=== PATIENT | male | born 1935 | race Caucasian/White ===

== ENCOUNTER 2018-12-29 11:17 | Emergency (ER) | payer MEDICARE ==
[~2018-12-29] VITALS: Ht 170.2 cm; Wt 79.4 kg
[~2018-12-29 11:17] MED LIST: COLACE100 MG PO; DIFLUCAN150 MG PO; FIBERCON625 M1 PO; LIPITOR 10 MG10 M1 PO; LIPITOR10 MG PO; LISINOPRIL10 MG PO; LISINOPRIL20 MG PO; NEURONTIN 300M300 M2 PO; OXYCODONE HCL10 MG PO; OXYCODONE-APAP1 EAC4 PO; POLYETHYLENE GL17 GM PO; PRILOSEC20 MG PO; TIROSINT100 MCG PO; UNICOMPLEX M TA1 TA1 PO
[2018-12-29] MEDS ORDERED: METFORMIN HCL500 MG PO (11:40)
[2018-12-29] MEDS ORDERED: KEFLEX500 M1 PO ×2 (14:53→14:58)
[2018-12-29 15:31] VITALS: BP 150/86
== END 2018-12-29 15:31 | disposition home or self-care (01) ==
LOC: M.ERS 11:17
DX: S61.012A Laceration without foreign body of left thumb without damage to nail, initial encounter (principal); I10 Essential (primary) hypertension; M54.9 Dorsalgia, unspecified; G89.29 Other chronic pain; W45.8XXA Other foreign body or object entering through skin, initial encounter; Y93.89 Activity, other specified; Y92.89 Other specified places as the place of occurrence of the external cause; Y99.8 Other external cause status

== ENCOUNTER 2018-12-31 04:32 | Emergency (ER) | payer MEDICARE ==
[~2018-12-31] VITALS: Ht 170.2 cm; Wt 78.9 kg
[~2018-12-31 04:32] MED LIST changes: +KEFLEX500 M1 PO; +METFORMIN HCL500 MG PO
[2018-12-31] MEDS ORDERED: NORCO 7.5-3251 EACH PO (05:19)
[2018-12-31 05:29] VITALS: BP 177/68
== END 2018-12-31 05:29 | disposition home or self-care (01) ==
LOC: M.ERS 04:32
DX: L76.32 Postprocedural hematoma of skin and subcutaneous tissue following other procedure (principal); I10 Essential (primary) hypertension; G47.30 Sleep apnea, unspecified; M54.9 Dorsalgia, unspecified; G89.29 Other chronic pain; Z98.890 Other specified postprocedural states

== ENCOUNTER → 2019-02-01 | Outpatient (CLI) | payer MEDICARE ==
[~2019-02-01] MED LIST changes: +NORCO 7.5-3251 EACH PO
== END ==
LOC: M.LAB 09:17
DX: D69.6 Thrombocytopenia, unspecified (principal)

== ENCOUNTER → 2019-02-02 | Outpatient (CLI) | payer MEDICARE ==
[2019-02-02 08:03] VITALS: BP 147/72; BP 147/74; BP 153/65
[2019-02-02 10:14] VITALS: BP 146/76; BP 147/76; BP 148/76; BP 150/70
--- NOTE | 2019-02-02 12:33 | NUR ---
ARRIVED AMBULATORY. MADE SELF COMFORTABLE. TRANSFUSION PROCCESS AND RISK [place] REVIEWED. VOICED UNDERSTANDING AND CONSENT SIGNED. PREMEDICATED WITH TYLENOL 650MG PO AND BENADRYL 50MG PO AT 0805. TRANSFUSION OR 2 UNITS PLATELET COMPLETED AND TOLERATED WELL. POST PLATELET LAB OBTAINED PER ORDER. DENEIS QUESTIONS OR NEEDS AT DISCHARGE.
== END ==
LOC: M.LAB 05:03 → M.INFUS 07:30
DX: D69.6 Thrombocytopenia, unspecified (principal)

== ENCOUNTER → 2019-03-20 | Outpatient (CLI) | payer MEDICARE ==
[2019-03-20 10:12] VITALS: BP 161/84; BP 178/77
--- NOTE | 2019-03-20 11:17 | NUR ---
ARRIVED AMBULATORY. MADE SELF COMFORTABLE IN RECLINER. IV STARTED WITH OUT DIFFICULTY. PLATELET TRANSFUSION COMPLETED AND TOLERATED WELL. DENIES NEEDS OR QUESTION AT DISCHARGE.
== END ==
LOC: M.INFUS 04:57
DX: D69.3 Immune thrombocytopenic purpura (principal)

== ENCOUNTER → 2019-03-27 | Outpatient (CLI) | payer MEDICARE | LOC: M.ULTRA 07:49 | DX: D69.6 Thrombocytopenia, unspecified (principal); K80.20 Calculus of gallbladder without cholecystitis without obstruction; R16.1 Splenomegaly, not elsewhere classified ==

== ENCOUNTER → 2019-03-30 | Outpatient (CLI) | payer MEDICARE ==
[2019-03-30 09:54] VITALS: BP 132/67; BP 138/72
--- NOTE | 2019-03-30 11:03 | NUR ---
ARRIVED AMBULATORY. MARICEL ADVERSE REACTION TO PRIOR TRANSFUSION OF BLOOD PRODUCTS. IV STARTED WITH OUT DIFFICULTY. 1 UNIT PLATELET TRANSFUSION COMPLETED AND TOLERATED WELL. IV FLUSHED AND REMOVED. DISCHARGE INSTRUCTION REVIEWED. MARICEL QUESTIONS OR NEEDS AT DISCHARGE.
== END ==
LOC: M.INFUS 05:37
DX: D69.6 Thrombocytopenia, unspecified (principal)

== ENCOUNTER → 2019-05-08 | Outpatient (CLI) | payer MEDICARE | LOC: M.WC 05:12 | DX: E11.621 Type 2 diabetes mellitus with foot ulcer (principal); L97.522 Non-pressure chronic ulcer of other part of left foot with fat layer exposed; L97.511 Non-pressure chronic ulcer of other part of right foot limited to breakdown of skin; L84 Corns and callosities; E07.89 Other specified disorders of thyroid; E78.5 Hyperlipidemia, unspecified; G47.30 Sleep apnea, unspecified; G89.29 Other chronic pain; I10 Essential (primary) hypertension; Z85.46 Personal history of malignant neoplasm of prostate ==

== ENCOUNTER → 2019-05-17 | Outpatient (CLI) | payer MEDICARE | LOC: M.WC 00:27 | DX: E11.621 Type 2 diabetes mellitus with foot ulcer (principal); L97.521 Non-pressure chronic ulcer of other part of left foot limited to breakdown of skin; L97.511 Non-pressure chronic ulcer of other part of right foot limited to breakdown of skin; E07.89 Other specified disorders of thyroid; E78.5 Hyperlipidemia, unspecified; G47.30 Sleep apnea, unspecified; I10 Essential (primary) hypertension; Z85.46 Personal history of malignant neoplasm of prostate ==

== ENCOUNTER → 2019-05-24 | Outpatient (CLI) | payer MEDICARE | LOC: M.WC 05:03 | DX: E11.621 Type 2 diabetes mellitus with foot ulcer (principal); L97.521 Non-pressure chronic ulcer of other part of left foot limited to breakdown of skin; L97.511 Non-pressure chronic ulcer of other part of right foot limited to breakdown of skin; E07.89 Other specified disorders of thyroid; E78.5 Hyperlipidemia, unspecified; I10 Essential (primary) hypertension; G47.30 Sleep apnea, unspecified; Z85.46 Personal history of malignant neoplasm of prostate ==

== ENCOUNTER → 2019-05-29 | Outpatient (CLI) | payer MEDICARE | LOC: M.WC 05:24 | DX: E11.621 Type 2 diabetes mellitus with foot ulcer (principal); L97.521 Non-pressure chronic ulcer of other part of left foot limited to breakdown of skin; E07.89 Other specified disorders of thyroid; E78.5 Hyperlipidemia, unspecified; G47.30 Sleep apnea, unspecified; I10 Essential (primary) hypertension; M54.9 Dorsalgia, unspecified; Z85.46 Personal history of malignant neoplasm of prostate ==

== ENCOUNTER → 2019-06-07 | Outpatient (CLI) | payer MEDICARE | LOC: M.WC 05:17 | DX: E11.621 Type 2 diabetes mellitus with foot ulcer (principal); L97.521 Non-pressure chronic ulcer of other part of left foot limited to breakdown of skin; E07.89 Other specified disorders of thyroid; E78.5 Hyperlipidemia, unspecified; G47.30 Sleep apnea, unspecified; I10 Essential (primary) hypertension; Z85.46 Personal history of malignant neoplasm of prostate ==

== ENCOUNTER → 2019-06-14 | Outpatient (CLI) | payer MEDICARE | LOC: M.WC 04:48 | DX: E11.621 Type 2 diabetes mellitus with foot ulcer (principal); L97.521 Non-pressure chronic ulcer of other part of left foot limited to breakdown of skin; L97.511 Non-pressure chronic ulcer of other part of right foot limited to breakdown of skin; E07.89 Other specified disorders of thyroid; E78.5 Hyperlipidemia, unspecified; G47.30 Sleep apnea, unspecified; G89.29 Other chronic pain; I10 Essential (primary) hypertension; Z85.46 Personal history of malignant neoplasm of prostate ==

== ENCOUNTER → 2019-06-28 | Outpatient (CLI) | payer MEDICARE | LOC: M.WC 05:13 | DX: E11.621 Type 2 diabetes mellitus with foot ulcer (principal); L97.521 Non-pressure chronic ulcer of other part of left foot limited to breakdown of skin; L84 Corns and callosities; I10 Essential (primary) hypertension; E78.5 Hyperlipidemia, unspecified; M54.9 Dorsalgia, unspecified; G47.30 Sleep apnea, unspecified; G89.29 Other chronic pain; Z85.46 Personal history of malignant neoplasm of prostate ==

== ENCOUNTER → 2019-07-05 | Outpatient (CLI) | payer MEDICARE ==
[~2019-07-05] MED LIST changes: +PRILOSEC OTC20 MG PO; -PRILOSEC20 MG PO
== END ==
LOC: M.WC 05:09
DX: E11.621 Type 2 diabetes mellitus with foot ulcer (principal); L97.521 Non-pressure chronic ulcer of other part of left foot limited to breakdown of skin; L97.511 Non-pressure chronic ulcer of other part of right foot limited to breakdown of skin; L84 Corns and callosities; E07.89 Other specified disorders of thyroid; E78.5 Hyperlipidemia, unspecified; G47.30 Sleep apnea, unspecified; G89.29 Other chronic pain; I10 Essential (primary) hypertension; Z85.46 Personal history of malignant neoplasm of prostate

== ENCOUNTER 2019-07-08 02:43 | Inpatient (IN) | payer MEDICARE ==
[~2019-07-08] VITALS: Ht 170.2 cm; Wt 75.7 kg
[2019-07-08] VITALS (7 sets, daily range): BP systolic 116–122; BP diastolic 46–67
[2019-07-08 03:22] LABS: HEMATOCRIT 20.1 % (42.0-52.0); MCH 27.1 pg (26.0-34.0); MCHC 32.2 g/dL (28.0-37.0); MCV 84.2 fL (80.0-100.0); MPV 9.2 fl. (7.2-11.1); NUCLEATED RBCS 2 /100WBC; RBC 2.39 mil/uL (4.50-6.00); RDW-CV 23.2 % (10.5-14.5); WBC 3.3 thou/uL (4.0-11.0)
[2019-07-08 03:26] LABS: HEMOGLOBIN 6.5 gm/dL (14.0-18.0); PLATELET COUNT* 23 thou/uL (150-400)
[2019-07-08 03:36] LABS: ANION GAP 8 mmol/L (7-16); BUN 17 mg/dL (7-18); CALCIUM 8.9 mg/dL (8.5-10.1); CHLORIDE 99 mmol/L (98-107); CO2 26 mmol/L (21-32); CREATININE 1.1 mg/dL (0.6-1.3); GLUCOSE 156 mg/dL (70-99); POTASSIUM 4.3 mmol/L (3.5-5.1); SODIUM 133 mmol/L (136-145)
[2019-07-08 03:46] LABS: ALBUMIN 2.9 g/dL (3.4-5.0); ALKALINE PHOSPHATASE 94 U/L (46-116); LIPASE 169 U/L (73-393); MAGNESIUM 1.9 mg/dL (1.8-2.4); NT-PRO BRAIN NAT PEPTIDE 696 pg/mL (<300); SGOT 33 U/L (15-37); SGPT 58 U/L (30-65); TOTAL BILIRUBIN 0.7 mg/dL (<0.1-1.0); TOTAL PROTEIN 6.8 g/dL (6.4-8.2); TROPONIN-I LEVEL <0.06 ng/mL (<0.06)
[2019-07-08 03:56] LABS: ABSOLUTE EOSINOPHILS 0.1 thou/uL (0.0-0.7); ABSOLUTE LYMPHOCYTES 0.9 thou/uL (0.8-5.3); ABSOLUTE MONOCYTES 0.3 thou/uL (0.0-1.2); ABSOLUTE NEUTROPHILS 2.1 thou/uL (1.6-8.1); ANISOCYTOSIS 2+; ATYPICAL LYMPHS 1 %; MICROCYTES 2+; PLATELET ESTIMATE DECREASED; POIKILOCYTOSIS 1+
[2019-07-08 03:57] LABS: HYPOCHROMASIA 1+; MACROCYTES Occasional; OVALOCYTES Occasional; POLYCHROMASIA 1+; TARGET CELLS Occasional
--- NOTE | 2019-07-08 06:53 | NUR ---
RECEIVED REPORT FROM ED RN. PT TRANSFERRED TO 233. PT A&OX4. VSS. ENTRY LEVEL WEB DEVELOPER IN PLACE. ADMISSION HISTORY & PHYSICAL ASSESSMENT COMPLETED AND CHARTED. PT ON O2 AT 2L NC. PT TRCAING SR/ST ON TELE. PT UPSTANDBY TO RESTROOM. ORIENTED TO ROOM & CALL LIGHT. PT HAS A HEALING WOUND ON HIS 2ND DIGIT OF LEFT FOOT PER AND REFUSING TO LET STAFF TAKE OFF DRESSING AND PHOTOGRAPH AND STATED ITS BEEN TAKING CARE BY OUR WOUND CLINIC AND IT WAS CHANGED LAST . CALL LIGHT WITHIN REACH.
[2019-07-08 14:16] LABS: HEMATOCRIT 26.4 % (42.0-52.0); HEMOGLOBIN 8.6 gm/dL (14.0-18.0)
[2019-07-08 14:17] LABS: MCH 28.4 pg (26.0-34.0); MCHC 32.5 g/dL (28.0-37.0); MCV 87.5 fL (80.0-100.0); MPV 8.5 fl. (7.2-11.1); RDW-CV 22.1 % (10.5-14.5)
[2019-07-08 14:18] LABS: PLATELET COUNT* 28 thou/uL (150-400)
--- NOTE | 2019-07-08 17:24 | NUR ---
RECEVIED REPORT FROM DEMARIO ARROYO. ASSUMED CARE OF PT AROUND 0730. PT A&O X4, FORGETFUL AT TIMES. VSS. LAMP ASSEMBLER IN PLACE TRACING SR TO ST WITH OCCASIONAL PVC'S. AM ASSESSMENT AND VITALS COMPLETED CHARTED. PT RECEIVED 1 UNIT PACKED RBC'S THIS SHIFT. PT SEEN BY CARDIOLOGY AND HOSPITALIST. DISCHARGE ORDERS RECEIVED. DISCHARGE COMPLETED CHARTED. DISCHARGE SUMMARY GONE OVER WITH PT, PT COMMUNICATES UNDERSTANDING. [facility] CALLED TO VERIFY DISCHAGE OKAY WITH THEM - THEY AGREED TO DC AND WILL HAVE PT FOLLOW UP OUTPATIENT. IV AND LAMP ASSEMBLER REMOVED. ALL BELONGINGS GATHERED AND SENT HOME WITH PT. PT LEFT UNIT WALKING WITH NURSING STAFF AND SPOUSE. PT LEFT HOSPITAL IN CAR WITH SPOUSE.
--- NOTE | 2019-07-10 09:28 | EKG ---
[place] [address] ELECTROCARDIOGRAM REPORT Name: REBEKA PALMAAN Roscoe Room: [address] IN M.R.#: [id number] Admission: 07/08/19 Attend Phys: Jeanen Sheriff MD Discharge: 07/08/19 Date of : 37 Report #: [id number] THIS REPORT FOR: //name// [facility] ED Test Date: 2019-07-08 Test Time: 02:48:42 Pat Name: BORIS PALMA Department: Room: [facility] Gender: M Snag Grinder: ALAN : 1935 Requested By: Juan Ramires Order Number: [id number] MD: Yordy Campuzano Measurements Intervals [place] Rate: 104 P: 49 DE: 158 QRS: -47 QRSD: 92 T: 31 QT: 344 QTc: 453 Interpretive Statements Sinus tachycardia Left anterior fascicular block Abnormal R-wave progression, late transition Compared to ECG 02/22/2014 21:40:27 Left anterior fascicular block now present Sinus rhythm no longer present Sinus arrhythmia no longer present Left-axis deviation no longer present Electronically Signed On 07-10-2019 9:27:58 CDT by Yordy Campuzano [email or web address] <ELECTRONICALLY SIGNED> By: Yordy Campuzano MD, FACC 07/10/19 0927 7 7 Yordy Campuzano MD, [facility] /EPI
--- NOTE | 2019-07-10 18:14 | CON ---
[address] [address] CONSULTATION Name: LOUIEBORIS Malhotra Room: [address] IN .R.#: [id number] Admission: 07/08/19 Attend Phys: Jeanne Sheriff MD Discharge: 07/08/19 Date of : 37 Report #: [id number] THIS REPORT FOR: //name// CC: Nick Villa DO Jeanne Sheriff INDICATION: Chest pain. HISTORY OF PRESENT ILLNESS: The patient is a very pleasant 83-year-old gentleman admitted to the hospital after having an episode of chest tightness described as a pressure around his chest. The patient reports this first occurring 2 days ago in the morning, he was awoken after having a dream that there were rocks on his chest. After awakening, the pressure subsided. He had no associated diaphoresis, shortness of breath, nausea or vomiting. There was no other radiation of the discomfort. The patient then had recurrence of this similar type of sensation, although not as severe at 3:00 this morning and presented to the Emergency Room for further treatment. He was admitted to the hospital. He has ruled out for myocardial infarction by serial enzymes. EKG showed sinus rhythm with no acute ST or T-wave abnormalities. He has pancytopenia and is currently being evaluated by [facility]. His hemoglobin was 6.5 on admission. He did receive a single unit of packed red blood cells and states he feels much better. Platelet count is 23,000, white blood cell count is 3.3. PAST MEDICAL HISTORY: 1. He has had a history of thrombocytopenia and anemia for several years. 2. GERD. 3. History of prostate cancer, status post prostatectomy, remotely. 4. Back surgery, remotely. 5. Cataract surgery. 6. Hyperlipidemia. 7. Type 2 diabetes mellitus. FAMILY HISTORY: Noncontributory. SOCIAL HISTORY: The patient is . He does not smoke. He does not drink alcohol. ALLERGIES: CONTRAST DYE, WHICH CAUSES A RASH. HOME MEDICATIONS: Atorvastatin 10 mg at bedtime, levothyroxine 100 mcg daily, metformin 500 mg daily, multivitamin 1 tablet daily, omeprazole 20 mg daily. REVIEW OF SYSTEMS: A 14-point review of systems is positive for mild cough that is minimally productive of sputum, chest discomfort as outlined above, type 2 [place] [address] CONSULTATION Name: BORIS PALMA Room: [address]#: [id number] Admission: 07/08/19 Attend Phys: Jeanne Sheriff MD Discharge: 07/08/19 Date of : 37 Report #: [id number] diabetes mellitus, hypothyroidism, and anemia. He has a history of prostate cancer in 1999, status post resection. HE HAS CONTRAST DYE ALLERGY. He has arthritis without connective tissue diseases. He wears reading glasses. He has decreased hearing and wears hearing aids. He denies epistaxis or dentures. PHYSICAL EXAMINATION: VITAL SIGNS: Stable. Blood pressure 122/56, pulse is 89 and regular. GENERAL: This is a healthy-appearing, pleasant gentleman in no distress. Mood and affect appropriate. HEENT: Hearing aids in place. Extraocular muscles intact. Mucous membranes are moist. NECK: Shows no jugular venous distention. There are no carotid bruits. CHEST: Reveals slight diminished breath sounds in the left base. I do not appreciate rales. CARDIOVASCULAR: Reveals a regular rhythm without gallop or murmur. ABDOMEN: Reveals normal bowel sounds. The abdomen is soft, nontender. EXTREMITIES: Shows no edema. Peripheral pulses are 2+ and easily palpable. DIAGNOSTIC DATA: Chest x-ray showed no acute cardiopulmonary abnormality. LABORATORY DATA: Labs are reviewed. Sodium 133, potassium 4.3, chloride 99, bicarbonate 26, BUN 17, creatinine 1.1, serum glucose 156. LFTs within normal limits. Troponin less than 0.06 on 3 separate occasions. NT-proBNP 696. White blood cell count 3.3, hemoglobin 6.5, platelet count 23,000. IMPRESSION AND RECOMMENDATIONS: 1. Chest discomfort. The patient has ruled out for myocardial infarction. In the setting of profound anemia, his troponins remain unremarkable. Doubt this represents acute coronary syndrome. I would be in favor of outpatient stress testing. 2. Pancytopenia. The patient is to have a bone marrow biopsy tomorrow through his Oncology group. 3. Hyperlipidemia. Continue atorvastatin at current dose. 4. Type 2 diabetes mellitus per primary physician. Continue metformin at this time. At this point in time, the patient appears stable from a cardiac standpoint. I believe he could be discharged to home and follow up as an outpatient for stress testing. <ELECTRONICALLY SIGNED> By: Yordy Campuzano MD, FACC 07/10/19 1814 1408 [id number] Campuzano MD, FACC /nt
== END 2019-07-08 17:27 | disposition home or self-care (01) | DRG 311 ==
LOC: M.ERS 02:43 → M.TBA-ER 04:49 → M.2W 05:00
PROVIDERS: Emergency Medicine Emergency Medical Services; ADMIT Internal Medicine
PROC: 30233N1 Transfusion of Nonautologous Red Blood Cells into Peripheral Vein, Percutaneous Approach (ICD-10-PCS; principal; 2019-07-08)
DX: I24.8 Other forms of acute ischemic heart disease (principal); D61.818 Other pancytopenia; I10 Essential (primary) hypertension; K21.9 Gastro-esophageal reflux disease without esophagitis; E78.5 Hyperlipidemia, unspecified; M54.9 Dorsalgia, unspecified; G89.29 Other chronic pain; G47.30 Sleep apnea, unspecified; E11.9 Type 2 diabetes mellitus without complications; Z85.46 Personal history of malignant neoplasm of prostate; Z90.79 Acquired absence of other genital organ(s); Z79.84 Long term (current) use of oral hypoglycemic drugs; Z79.899 Other long term (current) drug therapy; Z91.041 Radiographic dye allergy status

== ENCOUNTER → 2019-07-12 | Outpatient (CLI) | payer MEDICARE | LOC: M.WC 04:44 | DX: E11.621 Type 2 diabetes mellitus with foot ulcer (principal); L97.521 Non-pressure chronic ulcer of other part of left foot limited to breakdown of skin; L97.511 Non-pressure chronic ulcer of other part of right foot limited to breakdown of skin; L84 Corns and callosities; E07.89 Other specified disorders of thyroid; E78.5 Hyperlipidemia, unspecified; G47.30 Sleep apnea, unspecified; G89.29 Other chronic pain; I10 Essential (primary) hypertension; Z85.46 Personal history of malignant neoplasm of prostate ==

== ENCOUNTER → 2019-07-19 | Outpatient (CLI) | payer MEDICARE | LOC: M.WC 02:06 | DX: E11.621 Type 2 diabetes mellitus with foot ulcer (principal); L97.521 Non-pressure chronic ulcer of other part of left foot limited to breakdown of skin; L97.511 Non-pressure chronic ulcer of other part of right foot limited to breakdown of skin; L84 Corns and callosities; E07.89 Other specified disorders of thyroid; E78.5 Hyperlipidemia, unspecified; G47.30 Sleep apnea, unspecified; G89.29 Other chronic pain; I10 Essential (primary) hypertension; Z85.46 Personal history of malignant neoplasm of prostate ==

== ENCOUNTER → 2019-07-24 | Outpatient (CLI) | payer MEDICARE ==
[2019-07-24 14:07] VITALS: BP 126/61; BP 138/58
--- NOTE | 2019-07-24 14:49 | NUR ---
ARRIVED AMBULATORY. MADE SELF COFMORTABLE IN RECLINER. IV STARTED WTIH OUT DIFFICULTY. DENEIS ADVERSE REACTION TO PRIOR TRANSFUSIONS. PLATLET TRANSFUSION COMPLETED AND TOELRATED WELL. DENIES QUESTIONS OR NEEDS AT DISCHARGE.
== END ==
LOC: M.INFUS 08:21 → M.LAB 10:00 → M.INFUS 12:00 → M.LAB 12:00 → M.INFUS 13:37
DX: D46.9 Myelodysplastic syndrome, unspecified (principal)

== ENCOUNTER → 2019-07-26 | Outpatient (CLI) | payer MEDICARE | LOC: M.WC 05:19 | DX: E11.621 Type 2 diabetes mellitus with foot ulcer (principal); L97.521 Non-pressure chronic ulcer of other part of left foot limited to breakdown of skin; L84 Corns and callosities; E07.89 Other specified disorders of thyroid; E78.5 Hyperlipidemia, unspecified; G47.30 Sleep apnea, unspecified; G89.29 Other chronic pain; I10 Essential (primary) hypertension; Z85.46 Personal history of malignant neoplasm of prostate ==

== ENCOUNTER → 2019-07-27 | Outpatient (CLI) | payer MEDICARE ==
[2019-07-27 11:32] VITALS: BP 130/72; BP 132/67; BP 132/68
--- NOTE | 2019-07-27 14:11 | NUR ---
ARRIVED AMBULATORY WITH DAUGHTER. MADE SELF COMFORTABLE IN RECLINER. IV STARTED WITH OUT DIFFICULTY. ORDER AND LABS REVIEWED. PT DENEIS ADVERSE REACTION TO PRIOR TRANSFUSION THIS WEEK. TRANSFUSION COMPLTED AND TOLERATED WELL. UP TO BATHROOM X2 AND 100% OF LUNCH OFFERED WAS EATEN. DENEIS QUESTIONS OR NEEDS AT DISCHARGE.
== END ==
LOC: M.INFUS 10:00
DX: D46.9 Myelodysplastic syndrome, unspecified (principal); D69.6 Thrombocytopenia, unspecified

== ENCOUNTER → 2019-08-07 | Outpatient (CLI) | payer MEDICARE ==
[~2019-08-07] MED LIST changes: +DOXYCYCLINE 10100 M1 PO
[2019-08-07 12:32] VITALS: BP 118/52; BP 122/56
[2019-08-07 13:04] VITALS: BP 118/58; BP 122/56; BP 131/48
== END ==
LOC: M.INFUS 04:53 → EDSTATUS 12:00
DX: D46.9 Myelodysplastic syndrome, unspecified (principal); D69.6 Thrombocytopenia, unspecified; E11.621 Type 2 diabetes mellitus with foot ulcer; L97.522 Non-pressure chronic ulcer of other part of left foot with fat layer exposed; E07.89 Other specified disorders of thyroid; E78.5 Hyperlipidemia, unspecified; I10 Essential (primary) hypertension; G47.30 Sleep apnea, unspecified; G89.29 Other chronic pain; Z85.46 Personal history of malignant neoplasm of prostate

== ENCOUNTER → 2019-08-09 | Outpatient (CLI) | payer MEDICARE ==
[2019-08-09 09:09] LABS: HEMATOCRIT 26.9 % (42.0-52.0); HEMOGLOBIN 9.2 gm/dL (14.0-18.0); MCH 29.2 pg (26.0-34.0); MCHC 34.3 g/dL (28.0-37.0); MCV 85.2 fL (80.0-100.0); MPV 7.9 fl. (7.2-11.1); NUCLEATED RBCS 0 /100WBC; RBC 3.16 mil/uL (4.50-6.00); RDW-CV 20.6 % (10.5-14.5); WBC 8.6 thou/uL (4.0-11.0)
[2019-08-09 09:34] LABS: PLATELET COUNT* 24 thou/uL (150-400)
[2019-08-09 09:38] LABS: ABSOLUTE LYMPHOCYTES 2.1 thou/uL (0.8-5.3); ABSOLUTE MONOCYTES 0.2 thou/uL (0.0-1.2); ABSOLUTE NEUTROPHILS 6.4 thou/uL (1.6-8.1); ANISOCYTOSIS 2+; GIANT PLATELETS OCCASIONAL; LARGE PLATELETS OCCASIONAL; PLATELET ESTIMATE DECREASED
== END ==
LOC: M.LAB 05:30 → M.WC 05:30
PROVIDERS: Family Medicine
DX: E11.621 Type 2 diabetes mellitus with foot ulcer (principal); L97.526 Non-pressure chronic ulcer of other part of left foot with bone involvement without evidence of necrosis; C94.6 Myelodysplastic disease, not elsewhere classified; E07.89 Other specified disorders of thyroid; E78.5 Hyperlipidemia, unspecified; G47.30 Sleep apnea, unspecified; G89.29 Other chronic pain; I10 Essential (primary) hypertension; Z85.46 Personal history of malignant neoplasm of prostate

== ENCOUNTER 2019-08-11 05:43 | Inpatient (IN) | payer MEDICARE ==
[~2019-08-11] VITALS: Ht 170.2 cm; Wt 75.7 kg
[2019-08-11] VITALS (46 sets, daily range): BP systolic 117–164; BP diastolic 39–84
[~2019-08-11 05:43] MED LIST changes: -DOXYCYCLINE 10100 M1 PO
[2019-08-11] MEDS ORDERED: DOXYCYCLINE 10100 M1 PO (06:05)
[2019-08-11] MEDS ORDERED: KEFLEX500 M1 PO (06:06)
[2019-08-11 06:10] LABS: HEMATOCRIT 25.7 % (42.0-52.0); HEMOGLOBIN 8.8 gm/dL (14.0-18.0); MCHC 34.2 g/dL (28.0-37.0); MCV 84.7 fL (80.0-100.0); MPV 9.7 fl. (7.2-11.1); NUCLEATED RBCS 0 /100WBC; RBC 3.03 mil/uL (4.50-6.00); RDW-CV 20.7 % (10.5-14.5); WBC 8.8 thou/uL (4.0-11.0)
[2019-08-11 06:13] LABS: PLATELET COUNT* 9 thou/uL (150-400)
[2019-08-11 06:23] LABS: ANION GAP 10 mmol/L (7-16); BUN 21 mg/dL (7-18); CALCIUM 8.4 mg/dL (8.5-10.1); CHLORIDE 97 mmol/L (98-107); CO2 22 mmol/L (21-32); CREATININE 1.1 mg/dL (0.6-1.3); GLUCOSE 152 mg/dL (70-99); SODIUM 129 mmol/L (136-145)
[2019-08-11 06:34] LABS: ALBUMIN 2.6 g/dL (3.4-5.0); ALKALINE PHOSPHATASE 135 U/L (46-116); MAGNESIUM 1.7 mg/dL (1.8-2.4); NT-PRO BRAIN NAT PEPTIDE 1834 pg/mL (<300); SGOT 53 U/L (15-37); SGPT 58 U/L (30-65); TOTAL BILIRUBIN 0.7 mg/dL (<0.1-1.0); TOTAL PROTEIN 6.6 g/dL (6.4-8.2); TROPONIN-I LEVEL <0.06 ng/mL (<0.06)
[2019-08-11 06:36] LABS: APTT 32.8 Seconds (25.0-31.3); INR 1.3; PROTIME 13.1 Seconds (9.20-11.50)
[2019-08-11 06:46] LABS: BE -1.5 mmol/L (-2 to +3); PCO2 VENOUS 30.9 mmHg (41.0-51.0); PO2 VENOUS 24.5 mmHg (35.0-45.0)
[2019-08-11 06:53] LABS: ABSOLUTE EOSINOPHILS 0.1 thou/uL (0.0-0.7); ABSOLUTE LYMPHOCYTES 2.1 thou/uL (0.8-5.3); ABSOLUTE MONOCYTES 0.1 thou/uL (0.0-1.2); ABSOLUTE NEUTROPHILS 6.5 thou/uL (1.6-8.1); ANISOCYTOSIS 2+; METAMYELOCYTES 2 %; PLATELET ESTIMATE DECREASED
[2019-08-11 07:28] LABS: URINE BILIRUBIN NEGATIVE (Negative); URINE BLOOD NEGATIVE (Negative); URINE CLARITY CLEAR; URINE COLOR YELLOW; URINE GLUCOSE-RANDOM NEGATIVE (Negative); URINE KETONES NEGATIVE (Negative); URINE LEUKOCYTES-REFLEX NEGATIVE (Negative); URINE NITRITE-REFLEX NEGATIVE (Negative); URINE PROTEIN NEGATIVE (Negative); URINE SPECIFIC GRAVITY <= 1.005 (1.005-1.030); URINE UROBILINOGEN 0.2 E.U./dl (0.2-1.0)
[2019-08-11 10:43] LABS: HEMATOCRIT 23.3 % (42.0-52.0); HEMOGLOBIN 7.8 gm/dL (14.0-18.0); MCH 28.7 pg (26.0-34.0); MCHC 33.7 g/dL (28.0-37.0); MCV 85.1 fL (80.0-100.0); MPV 8.2 fl. (7.2-11.1); RBC 2.74 mil/uL (4.50-6.00); RDW-CV 20.2 % (10.5-14.5); WBC 7.5 thou/uL (4.0-11.0)
--- NOTE | 2019-08-11 12:46 | CON ---
[address] [address] CONSULTATION Name: BORIS PALMA Room: [address] IN .R.#: [id number] Admission: 08/11/19 Attend Phys: Abad Nuñez Discharge: Date of : 37 Report #: [id number] THIS REPORT FOR: //name// CC: Nick Galindo CARDIOLOGY CONSULTATION The patient in ICU 1, seen and dictated on 08/11/2019. HISTORY OF PRESENT ILLNESS: The patient is a very pleasant 84-year-old male with myelodysplastic disorder. He has anemia and thrombocytopenia in that context. He presented to the ER with left pleuritic chest discomfort. Since then, there has been some diminution in the magnitude of the pain. He denies any central chest pain and he characterized it as a sharp sensation in the left chest with deep breathing. The patient does have a history of the aforementioned myelodysplastic disorder, prior prostate surgery, hypertension, obstructive sleep apnea. He also has diabetes. MEDICATIONS: Medicines have included thyroid replacement with L-thyroxine, atorvastatin, metformin, doxycycline, and cephalexin. ALLERGIES: HE DESCRIBES ALLERGIC RESPONSE TO CONTRAST DYE IN THE PAST. SOCIAL HISTORY: Remarkable in that he has not been a significant cigarette smoker and does not use alcohol. PHYSICAL EXAMINATION: GENERAL: Reveals an elderly male in mild distress. VITAL SIGNS: Blood pressure 120/70, pulse rate is 84, respirations are 18 per minute. NECK: Jugular venous pressure is normal. CHEST: Clear. There is no palpable chest discomfort in the left anterior chest. CARDIAC: Reveals a regular rhythm with occasional extrasystoles. ABDOMEN: Soft. EXTREMITIES: Satisfactorily perfused. LABORATORY DATA: Sequential EKGs are reviewed and they demonstrate sinus rhythm with a moderate number of PVCs and no ischemic changes. Troponin is less than 0.06[place] [address] CONSULTATION Name: BORIS PALMA Room: [address] IN [facility]#: [id number] Admission: 08/11/19 Attend Phys: Abad Nuñez Discharge: Date of : 37 Report #: [id number] Sodium 129, potassium is 4.0, BUN 21, creatinine 1.1. NT-BNP 1834. D-dimer elevated at 5.3. Hemoglobin 8.8, white blood cell count 8800 with 9000 platelets initially after approximately 30,000 after platelet infusion. IMPRESSION: 1. Pleuritic left chest pain, which does not suggest an ischemic etiology. 2. EKG reveals no changes to suggest ischemia or injury. 3. Consider pulmonary thromboembolism in this context. 4. Significant thrombocytopenia, even after platelet transfusion. RECOMMENDATIONS: 1. Concur with the thought that pulmonary embolism should be excluded. 2. We would suggest an echocardiogram to assess right heart size and function in this context. Additional cardiovascular testing in specific getting SPECT myocardial ischemic disease is not indicated in this clinical context. Critical care time is 35 minutes from 10:45 to 11:20 on 08/11/2019. Thank you for allowing us to see the patient in cardiovascular assessment. <ELECTRONICALLY SIGNED> By: Santiago Brannon MD, [facility] 08/11/19 1246 1119 [id number] Brannon MD, [facility] /nt
--- NOTE | 2019-08-11 13:08 | 2DMMODE ---
[place] [address] 2 D/M-MODE ECHOCARDIOGRAM Name: BORIS PALMA Room: [address] ADM IN .R.#: [id number] Admission: 08/11/19 Attend Phys: Lauro Galindo Discharge: Date of : 37 Date of Service: 08/11/19 1308 Report #: [id number] THIS REPORT FOR: //name// APPROVED REPORT Study performed: 08/11/2019 12:32:47 EXAM: Comprehensive 2D, Doppler, and color-flow Echocardiogram Patient Location: Bedside BSA: 1.86 HR: 97 bpm BP: 124/56 mmHg Other Information Study Quality: Fair Indications Chest Pain 2D Dimensions IVSd: 12.92 (7-11mm) LVOT Diam: 20.85 (18-24mm) LVDd: 49.97 mm PWd: 8.55 (7-11mm) Ascending Ao: 24.22 (22-36mm) LVDs: 39.49 (25-40mm) Aortic Root: 28.17 mm Volumes Left Atrial Volume (Systole) LA ESV Index: 27.40 mL/m2 Aortic Valve AoV Peak Johnnie.: 0.96 m/s AO Peak Gr.: 3.66 mmHg LVOT Max P.76 mmHg AO Mean Gr.: 2.22 mmHg LVOT Mean P.39 mmHg LVOT Max V: 0.83 m/s AO V2 VTI: 19.31 cm LVOT Mean V: 0.55 m/s JIGAR (VTI): 2.74 cm2 LVOT V1 VTI: 15.48 cm Mitral Valve E/A Ratio: 0.85 MV Decel. Time: 205.12 ms MV E Max Johnnie.: 0.63 m/s MV PHT: 59.49 ms MVA (PHT): 3.70 [place] [address] 2 D/M-MODE ECHOCARDIOGRAM Name: BORIS PALMA Room: [address] IN [facility]#: [id number] Admission: 08/11/19 Attend Phys: Lauro Galindo Discharge: Date of : 37 Date of Service: 08/11/19 1308 Report #: [id number] TDI E/Lateral E': 7.00 E/Medial E': 6.30 Medial E' Johnnie.: 0.10 m/s Lateral E' Johnnie.: 0.09 m/s Pulmonary Valve PV Peak Johnnie.: 1.13 m/s PV Peak Gr.: 5.15 mmHg Tricuspid Valve RAP Estimate: 5.00 mmHg TR Peak Gr.: 27.62 mmHg RVSP: 32.62 mmHg PA Pressure: 32.62 mmHg Left Ventricle The left ventricle is normal size. There is normal LV segmental wall motion. There is normal left ventricular wall thickness. Left ventricular systolic function is normal. The left ventricular ejection fraction is within the normal range. LVEF is 60%. Grade I - abnormal relaxation pattern. Right Ventricle The right ventricle is normal size The right ventricular systolic function is normal. Atria The left atrium size is normal. The right atrium size is normal. Aortic Valve Mild aortic valve sclerosis. No aortic regurgitation is present. There is no aortic valvular stenosis. Mitral Valve The mitral valve is normal in structure. Trace mitral regurgitation. No evidence of mitral valve stenosis. Tricuspid Valve The tricuspid valve is normal in structure. Trace tricuspid regurgitation. Pulmonic Valve The pulmonary valve is normal in structure. There is no pulmonic valvular regurgitation[place] [address] 2 D/M-MODE ECHOCARDIOGRAM Name: BORIS PALMA Room: [address]#: [id number] Admission: 08/11/19 Attend Phys: Lauro Galindo Discharge: Date of : 37 Date of Service: 08/11/19 1308 Report #: [id number] The aortic root is normal in size. IVC is normal in size and collapses >50% with inspiration. Pericardium There is no pericardial effusion. <Conclusion> The left ventricle is normal size. There is normal left ventricular wall thickness. Left ventricular systolic function is normal. The left ventricular ejection fraction is within the normal range. LVEF is 60%. Grade I - abnormal relaxation pattern. The right ventricle is normal size The right ventricular systolic function is normal. The left atrium size is normal. Mild aortic valve sclerosis. No aortic regurgitation is present. There is no aortic valvular stenosis. The mitral valve is normal in structure. Trace mitral regurgitation. The tricuspid valve is normal in structure. IVC is normal in size and collapses >50% with inspiration. There is no pericardial effusion. There is normal LV segmental wall motion. <ELECTRONICALLY SIGNED> By: Santiago Brannon MD, FACC 08/11/19 1308 1308 1308 Santiago Brannon MD, FACC /INF
[2019-08-12] VITALS (23 sets, daily range): BP systolic 114–164; BP diastolic 39–75
[2019-08-12 04:32] LABS: ABSOLUTE LYMPHOCYTES 0.8 thou/uL (0.8-5.3); ABSOLUTE MONOCYTES 0.4 thou/uL (0.0-1.2); ABSOLUTE NEUTROPHILS 6.3 thou/uL (1.6-8.1); BASOPHILS 0.4 %; HEMATOCRIT 24.8 % (42.0-52.0); HEMOGLOBIN 8.4 gm/dL (14.0-18.0); LYMPHOCYTES 10.4 %; MCH 28.5 pg (26.0-34.0); MCHC 33.7 g/dL (28.0-37.0); MCV 84.4 fL (80.0-100.0); MPV 7.1 fl. (7.2-11.1); NUCLEATED RBCS 0 /100WBC; POLYS 84.2 %; RBC 2.94 mil/uL (4.50-6.00); RDW-CV 20.8 % (10.5-14.5); WBC 7.5 thou/uL (4.0-11.0)
[2019-08-12 04:37] LABS: PLATELET COUNT* 19 thou/uL (150-400)
[2019-08-12 04:48] LABS: CALCIUM 8.5 mg/dL (8.5-10.1); CREATININE 0.9 mg/dL (0.6-1.3); POTASSIUM 3.5 mmol/L (3.5-5.1)
--- NOTE | 2019-08-13 16:57 | EKG ---
[place] [address] ELECTROCARDIOGRAM REPORT Name: BORIS PALMA Room: [address] DIS IN M.R.#: [id number] Admission: 08/11/19 Attend Phys: Abad Nuñez Discharge: 08/12/19 Date of : 37 Report #: [id number] THIS REPORT FOR: //name// 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: [place] : 1935 Requested By: Selma Ramos Order Number: [id number] Reading MD: Humberto Anderson Measurements Intervals [place] Rate: 129 P: 72 MD: 149 QRS: -51 QRSD: 93 T: 70 QT: 307 QTc: 450 Interpretive Statements Sinus tachycardia Ventricular bigeminy Left anterior fascicular block Abnormal R-wave progression, late transition Compared to ECG 07/08/2019 02:48:42 Ventricular premature complex(es) now present Electronically Signed On 08-13-2019 16:57:04 CDT by Humberto nAderson [email or web address] <ELECTRONICALLY SIGNED> By: Humberto Anderosn MD, [facility] 08/13/19 1657 0548 0548 Humberto Anderson MD, [facility] /EPI
--- NOTE | 2019-08-13 16:58 | EKG ---
[place] [address] ELECTROCARDIOGRAM REPORT Name: BORIS PALMA Room: [address] DIS IN M.R.#: [id number] Admission: 08/11/19 Attend Phys: Abad Nuñez Discharge: 08/12/19 Date of : 37 Report #: [id number] THIS REPORT FOR: //name// [facility] Test Date: 2019-08-11 Test Time: 07:54:37 Pat Name: BORIS PALMA Department: Room: [address] Gender: M Sign Writer Hand: UNKNOWN : 1935 Requested By: Lauro Galindo Order Number: [id number] Alba MD: Humberto Anderson Measurements Intervals [place] Rate: 99 P: 70 VA: 161 QRS: -41 QRSD: 96 T: 44 QT: 365 QTc: 469 Interpretive Statements Sinus tachycardia Multiform ventricular premature complexes Left axis deviation Baseline wander in lead(s) V6 Compared to ECG 07/08/2019 02:48:42 no change Electronically Signed On 08-13-2019 16:58:04 CDT by Humberto Anderson [email or web address] <ELECTRONICALLY SIGNED> By: Humberto Anderson MD, [facility] 08/13/19 1658 0754 0754 Humberto Anderson MD, [facility] /EPI
== END 2019-08-12 12:50 | disposition home or self-care (01) | DRG 811 ==
LOC: M.ERS 05:43 → M.TBA-ER 06:31 → M.ICU 06:31
PROVIDERS: Family Medicine; Internal Medicine Hematology & Oncology; Personal Emergency Response Attendant; ADMIT Internal Medicine
PROC: 30233R1 Transfusion of Nonautologous Platelets into Peripheral Vein, Percutaneous Approach (ICD-10-PCS; principal; 2019-08-11)
PROC: 5A09357 Assistance with Respiratory Ventilation, Less than 24 Consecutive Hours, Continuous Positive Airway Pressure (ICD-10-PCS; 2019-08-12)
DX: D46.9 Myelodysplastic syndrome, unspecified (principal); E43 Unspecified severe protein-calorie malnutrition; D61.818 Other pancytopenia; R07.81 Pleurodynia; E11.621 Type 2 diabetes mellitus with foot ulcer; I10 Essential (primary) hypertension; G47.33 Obstructive sleep apnea (adult) (pediatric); E03.9 Hypothyroidism, unspecified; E78.5 Hyperlipidemia, unspecified; L97.529 Non-pressure chronic ulcer of other part of left foot with unspecified severity; G89.29 Other chronic pain; M54.9 Dorsalgia, unspecified; Z91.041 Radiographic dye allergy status; Z79.899 Other long term (current) drug therapy; Z98.52 Vasectomy status; Z79.84 Long term (current) use of oral hypoglycemic drugs; Z68.26 Body mass index [BMI] 26.0-26.9, adult

== ENCOUNTER 2019-08-13 10:26 | Emergency (ER) | payer MEDICARE ==
[~2019-08-13] VITALS: Ht 170.2 cm; Wt 74.4 kg
[~2019-08-13 10:26] MED LIST changes: +DOXYCYCLINE 10100 M1 PO
[2019-08-13 11:51] LABS: ABSOLUTE BASOPHILS 0.2 thou/uL (0.0-0.2); ABSOLUTE LYMPHOCYTES 1.8 thou/uL (0.8-5.3); ABSOLUTE MONOCYTES 0.9 thou/uL (0.0-1.2); ABSOLUTE NEUTROPHILS 6.9 thou/uL (1.6-8.1); BASOPHILS 2.3 %; HEMATOCRIT 23.7 % (42.0-52.0); HEMOGLOBIN 8.1 gm/dL (14.0-18.0); LYMPHOCYTES 18.3 %; MCH 28.7 pg (26.0-34.0); MCV 84.3 fL (80.0-100.0); MPV 8.8 fl. (7.2-11.1); NUCLEATED RBCS 0 /100WBC; POLYS 70.4 %; RBC 2.81 mil/uL (4.50-6.00); RDW-CV 20.3 % (10.5-14.5); WBC 9.8 thou/uL (4.0-11.0)
[2019-08-13 11:54] LABS: PLATELET COUNT* 11 thou/uL (150-400)
[2019-08-13 12:09] LABS: ANION GAP 14 mmol/L (7-16); BUN 22 mg/dL (7-18); CALCIUM 8.3 mg/dL (8.5-10.1); CHLORIDE 97 mmol/L (98-107); CO2 21 mmol/L (21-32); CREATININE 1.2 mg/dL (0.6-1.3); GLUCOSE 195 mg/dL (70-99); POTASSIUM 3.9 mmol/L (3.5-5.1); SODIUM 132 mmol/L (136-145)
[2019-08-13 12:19] LABS: ALBUMIN 2.6 g/dL (3.4-5.0); ALKALINE PHOSPHATASE 138 U/L (46-116); LIPASE 126 U/L (73-393); NT-PRO BRAIN NAT PEPTIDE 2348 pg/mL (<300); SGOT 62 U/L (15-37); SGPT 71 U/L (30-65); TOTAL BILIRUBIN 0.6 mg/dL (<0.1-1.0); TOTAL PROTEIN 6.5 g/dL (6.4-8.2); TROPONIN-I LEVEL <0.06 ng/mL (<0.06)
[2019-08-13 12:24] LABS: PLATELET ESTIMATE DECREASED
[2019-08-13 12:25] LABS: ANISOCYTOSIS 1+; POIKILOCYTOSIS 1+
[2019-08-13 17:20] VITALS: BP 130/62; BP 136/57
[2019-08-13 17:40] VITALS: BP 136/57
== END 2019-08-13 17:42 | disposition home or self-care (01) ==
LOC: M.ERS 10:26
PROVIDERS: Physician Assistant
DX: D69.6 Thrombocytopenia, unspecified (principal); R53.1 Weakness; E78.5 Hyperlipidemia, unspecified; E03.9 Hypothyroidism, unspecified; Z91.041 Radiographic dye allergy status